=== PATIENT | male | born 1950 | race Caucasian/White ===

== ENCOUNTER 2017-04-11 05:20 | Inpatient (IN) | payer OTHER, MEDICAID ==
[~2017-04-11] VITALS: Ht 185.4 cm; Wt 82.1 kg
[2017-04-11] VITALS (20 sets, daily range): BP systolic 75–143; BP diastolic 36–97
--- NOTE | 2017-04-11 05:22 | NUR ---
[facility] FOR C/O COUGH W/ CONGESTION X SEVERAL WKS, PROGRESSIVELY GETTING WORSE TODAY W/ SOB, O2 SAT 90% ON RA. AOX4, AFEBRILE W/ RESP EVEN, LABORED, TACHYPNEIC, WHEEZING W/ RONCHI, PLACED ON 4 L/MIN O2 VIA NC, PULSE-OX W/ CARDIAC MONITORING.
[2017-04-11] MEDS ORDERED: ALBUTEROL FS 2.5 MG/0.5 ML VIAL.NEB NEB ONE (05:30)
--- NOTE | 2017-04-11 05:40 | NUR ---
WOUND SPECIALIST AT BEDSIDE FOR BREATHING TX.
[2017-04-11] MEDS ORDERED: ALBUTEROL FS 2.5 MG/0.5 ML VIAL.NEB ONE (05:44)
--- NOTE | 2017-04-11 05:46 | NUR ---
WILFREDO STARTED, LABS DRAWN W/ BC X2 & SENT.
[2017-04-11 06:03] LABS: BASOPHILS % (AUTO) 0.4 % (0.0-2.0); EOSINOPHILS % (AUTO) 0.1 % (0.0-6.0); HEMATOCRIT 42 % (39-51); HEMOGLOBIN 14.6 g/dL (13.5-17.5); LYMPHOCYTES # (AUTO) 1.2 /CMM (0.8-4.8); LYMPHOCYTES % (AUTO) 22.4 % (20.0-44.0); MEAN CORPUSCULAR HEMOGLOBIN 31 PG (26.0-33.0); MEAN CORPUSCULAR HGB CONC 34 g/dl (31.0-36.0); MEAN CORPUSCULAR VOLUME 89 fL (80-96); MONOCYTES # (AUTO) 0.7 /CMM (0.1-1.30); MONOCYTES % (AUTO) 13.8 % (2.0-12.0); NEUTROPHILS # (AUTO) 3.3 /CMM (1.8-8.9); NEUTROPHILS % (AUTO) 63.3 % (43.0-81.0); PLATELET COUNT (AUTO) 200 /CMM (150-450); RDW COEFFICIENT OF VARIATION 13.2 (11.5-15.0); RED BLOOD CELL COUNT(AUTO) 4.75 MIL/uL (4.5-6.0); WHITE BLOOD COUNT (AUTO) 5.3 K/uL (4.3-11.0)
[2017-04-11 06:07] LABS: CALCIUM, SERUM 8.8 mg/dL (8.5-10.1); POTASSIUM 3.4 mmol/L (3.5-5.1)
[2017-04-11 06:19] LABS: TROPONIN I 0.08 ng/mL (0.00-0.056)
--- NOTE | 2017-04-11 06:31 | NUR ---
CALLED SENIOR CASE MANAGER FOR TELE BED
--- NOTE | 2017-04-11 06:36 | NUR ---
[facility] paged.
[2017-04-11] MEDS ORDERED: OSELTAMIVIR PHOSPHATE 75 MG CAPSULE ONE (06:51)
[2017-04-11] MEDS ORDERED: ASPIRIN 325 MG TABLET ONE (06:51)
[2017-04-11] MEDS ORDERED: LEVOTHYROXINE 125 MCG TABLET PO (06:56)
[2017-04-11] MEDS ORDERED: ATORVASTATIN 40 MG TABLET PO (06:56)
[2017-04-11] MEDS ORDERED: LISI-607 PO (06:57)
[2017-04-11] MEDS ORDERED: ASPIRIN 325 MG TABLET PO ONE (07:00)
[2017-04-11] MEDS ORDERED: OSELTAMIVIR PHOSPHATE 75 MG CAPSULE PO ONE (07:00)
--- NOTE | 2017-04-11 07:00 | NUR ---
RECEIVED ORDERS FROM KYLE. AWAITING TELE BED
--- NOTE | 2017-04-11 07:12 | NUR ---
CALLED INJECTION SPECIALIST FOR TELE BED AGAIN. NO AVAILABLE BED YET
--- NOTE | 2017-04-11 10:09 | NUR ---
Pt sleeping in bed, no distress noted.
--- NOTE | 2017-04-11 10:49 | NUR ---
DR MONTANA CAME IN TO SEE PATIENT AND GAVE VERBAL ORDER TO PUT PATIENT ON BIPAP, DR YANEZ EVALUATED THE PATIENT AND AGREED. DR WRIGHT CALLED OF CHANGE IN STATUS.
[2017-04-11] MEDS ORDERED: ALBUTEROL FS 2.5 MG/3 ML VIAL.NEB ONE ×2 (10:58→11:14)
[2017-04-11] MEDS ORDERED: IPRATROPIUM NEB FS 0.5 MG/2.5 ML AMPUL.NEB NEB ONE (11:00)
[2017-04-11] MEDS ORDERED: ALBUTEROL FS 2.5 MG/3 ML VIAL.NEB NEB ONE (11:00)
--- NOTE | 2017-04-11 11:07 | NUR ---
Pt started having harder time breathing, sat pt in high fowlers, Bi-level vent placed. Pt felt some relief quickly. Addendum: 04/11/17 at 1112 by LADARIUS IPAP=15, EPAP=5, rate=18, fiO2=40%
--- NOTE | 2017-04-11 11:12 | NUR ---
PLACED PT ON BIPAP 15/5 RR 18 FIO2 40% AND CONFIRMED WITH ER DOCTOR.
[2017-04-11] MEDS ORDERED: IPRATROPIUM NEB FS 0.5 MG/2.5 ML AMPUL.NEB ONE ×2 (11:14→12:09)
--- NOTE | 2017-04-11 11:20 | NUR ---
Dr Post gave verbal order for ABG.
[2017-04-11 11:38] LABS: ABG BASE EXCESS 2.4 mmol/L; ABG PCO2 41.8 mmHg (35.0-45.0); ABG PH 7.428 (7.350-7.450); ABG PO2 152.5 mmHg (75.0-100.0); COHb 0.8 % (0.5-1.5); MetHb 0.5 % (0.0-1.5); SITE, ABG Left Radial; VENT MODE, BG BIPAP 15/5 R18
[2017-04-11] MEDS ORDERED: LEVOFLOXACIN 500 MG /D5W 100ML 500 MG/100 ML PIGGYBACK IV SCH (12:00)
[2017-04-11] MEDS ORDERED: LEVALBUTEROL HCL NEB 1.25 MG/0.5 ML VIAL.NEB NEB SCH (12:00)
--- NOTE | 2017-04-11 12:30 | NUR ---
RAIL SIGNAL WORKER RECEIVED PT BY JASON WITH MONITOR. REPORT RECEIVED FROM ASSEMBLY LINE MACHINE OPERATOR. PT C/O DYSPNEA WITH COUGH X 1 MONTH. ADMITTED INTO ICU FOR COPD EXACERBATION, NSTEMI, INFLUENZA A.
[2017-04-11] MEDS: IV 1/2NS 1000 ML 1,000 ML IV PRN (12:48)
--- NOTE | 2017-04-11 12:49 | NUR ---
PATIENT TRASNPOPRTED TO ICU. VSS. ISOLATION PREC. OBSERVED
[2017-04-11] MEDS ORDERED: ACETAMINOPHEN 325 MG TABLET PO PRN (13:00)
[2017-04-11] MEDS: methylPREDNISolone SOD SUCC 40 MG/ML VIAL IV SCH ×2 (13:05→17:18)
[2017-04-11] MEDS: ATORVASTATIN 40 MG TABLET PO SCH (13:06)
[2017-04-11] MEDS: LISINOPRIL (5MG) 5 MG TABLET PO SCH (13:06)
[2017-04-11] MEDS: LEVOTHYROXINE SODIUM 125 MCG TABLET PO SCH (13:06)
[2017-04-11] MEDS: ALBUTEROL HALF STRENGTH 1.25 MG/3 ML VIAL.NEB NEB SCH ×2 (13:13→19:48)
[2017-04-11] MEDS: IPRATROPIUM NEB FS 0.5 MG/2.5 ML AMPUL.NEB NEB SCH ×2 (13:13→19:48)
--- NOTE | 2017-04-11 14:15 | NUR ---
ICU/KINDERGARTNERS HELPER RESUME CARE FROM CHARGE NURSE REPORT RECEIVED. PT IS ALERT X4. PT IS A LITTLE LABORED IN BREATHING, SATURATION IS 94% ON CURRENT OXYGEN. PT SAID HE IS BREATHING BETTER THAN YESTERDAY. PT HAS BESIDE URINAL. ST 130'S ON MONITOR. PT ALSO HAS A SKIN RASH TO LOWER ABD WHICH WAS NOT TOLD TO PREVIOUS NURSE. THIS WAS DOCUMENTED AND PHOTO TAKEN.PT GIVEN LUNCH TRAY. PT DENIES PAIN CURRENTLY. CALL LIGHT WITHIN REACH.
[2017-04-11] MEDS: LEVOFLOXACIN 500 MG /D5W 100ML 500 MG in PREMIX 1 EA IV SCH (14:48)
--- NOTE | 2017-04-11 16:55 | NUR ---
ICU/SENIOR ELECTRONICS DESIGN ENGINEER OXYGEN WAS DECREASED TO 2 LITERS FROM 4 LITERS, PT HAS HISTORY OF COPD, AND DO NOT WANT TO HAVE CO2 INCREASE DUE TO THE HIGH OXYGEN LEVEL.
[2017-04-11] MEDS: OSELTAMIVIR PHOSPHATE 75 MG CAPSULE PO SCH (17:18)
--- NOTE | 2017-04-11 17:20 | NUR ---
ICU/ALL AROUND GEAR MACHINE OPERATOR PT WAS OFFERED TO HAVE A MID-LINE PLACED. PT CURRENTLY HAS ONLY ONE IV LINE. PT REFUSED. CALL LIGHT WITHIN REACH. PT CURRENTLY DENIES PAIN.
--- NOTE | 2017-04-11 19:05 | NUR ---
PRODUCT ARCHITECT OPENING NOTES RECEIVED REPORT FROM DANIEL SILVA. PATIENT A/A/O X4, ABLE TO MAKE NEEDS KNOWN. BREATHING EVEN & UNLABORED, TOLERATING O2 2L VIA NC. SATING @ 96%. DENIES SOB & PRODUCTIVE COUGH NOTED. ON TELE SINUS RHYTHM W/ PVS IN THE 90S. DENIES ANY CHEST PAIN OR DISCOMFORT. RIGHT FOREARM IV INTACT & PATENT W/ DRESSING CDI & IVF 1/2 NS @ 75 ML/HR. DENIES ANY PAIN OR DISCOMFORT @ THIS TIME. LATE DINNER TRAY SERVED. CALL LIGHT WITHIN REACH. WILL CONTINUE TO MONITOR.
--- NOTE | 2017-04-11 19:17 | NUR ---
ICU/EMERGENCY MEDICINE NURSE PRACTITIONER REPORT GIVEN TO ON COMING NIGHT NURSE.
[2017-04-11] MEDS ORDERED: NOREPINEPHRINE 8 MG in IV D5W 500 ML IV PRN (23:00)
[2017-04-12] VITALS (24 sets, daily range): BP systolic 81–140; BP diastolic 38–77
[2017-04-12] MEDS: methylPREDNISolone SOD SUCC 40 MG/ML VIAL IV SCH ×4 (00:32→17:07)
[2017-04-12] MEDS: ALBUTEROL HALF STRENGTH 1.25 MG/3 ML VIAL.NEB NEB SCH ×4 (01:29→19:42)
[2017-04-12] MEDS: IPRATROPIUM NEB FS 0.5 MG/2.5 ML AMPUL.NEB NEB SCH ×4 (01:29→19:42)
--- NOTE | 2017-04-12 07:30 | NUR ---
RN NOTES RECEIVED PT IN BED RESTING, A/A/O X3, ABLE TO MAKE NEEDS KNOWN. BREATHING EVEN & UNLABORED, TOLERATING O2 2L VIA NC. SATING @ 98%. DENIES PAIN NOR CHEST PAIN AT THIS TIME. SR WITH BBB ON COMMERCIAL FRONT LOAD OPERATOR HR 86. RIGHT FOREARM IV INTACT & PATENT W/ DRESSING CDI & IVF 1/2 NS @ 75 ML/HR. URINAL KEPT AT BEDSIDE, KEPT COMFORTABLE, CALL LIGHT WITHIN REACH. WILL CONTINUE TO MONITOR CLOSELY.
[2017-04-12] MEDS: ATORVASTATIN 40 MG TABLET PO SCH (08:59)
[2017-04-12] MEDS: LISINOPRIL (5MG) 5 MG TABLET PO SCH (09:00)
[2017-04-12] MEDS: LEVOTHYROXINE SODIUM 125 MCG TABLET PO SCH (09:11)
[2017-04-12] MEDS: OSELTAMIVIR PHOSPHATE 75 MG CAPSULE PO SCH ×2 (09:56→17:07)
[2017-04-12 10:26] LABS: HEMATOCRIT 38 % (39-51); HEMOGLOBIN 13.1 g/dL (13.5-17.5); LYMPHOCYTES # (AUTO) 0.7 /CMM (0.8-4.8); LYMPHOCYTES % (AUTO) 7.6 % (20.0-44.0); MEAN CORPUSCULAR HEMOGLOBIN 31 PG (26.0-33.0); MEAN CORPUSCULAR HGB CONC 35 g/dl (31.0-36.0); MEAN CORPUSCULAR VOLUME 89 fL (80-96); MONOCYTES # (AUTO) 0.6 /CMM (0.1-1.30); NEUTROPHILS # (AUTO) 8.1 /CMM (1.8-8.9); NEUTROPHILS % (AUTO) 86.4 % (43.0-81.0); PLATELET COUNT (AUTO) 180 /CMM (150-450); RDW COEFFICIENT OF VARIATION 13.4 (11.5-15.0); RED BLOOD CELL COUNT(AUTO) 4.25 MIL/uL (4.5-6.0); WHITE BLOOD COUNT (AUTO) 9.4 K/uL (4.3-11.0)
[2017-04-12 10:43] LABS: CALCIUM, SERUM 8.5 mg/dL (8.5-10.1); CREATININE 1.1 mg/dL (0.6-1.3); POTASSIUM 3.5 mmol/L (3.5-5.1)
[2017-04-12 13:03] LABS: IRON, SERUM 58 ug/dl (50-175); TOTAL IRON BINDING CAPACITY 217 ug/dl (250-450)
[2017-04-12] MEDS: LEVOFLOXACIN 500 MG /D5W 100ML 500 MG in PREMIX 1 EA IV SCH (13:41)
[2017-04-12] MEDS: ASPIRIN 81 MG TAB.CHEW PO SCH (13:41)
--- NOTE | 2017-04-12 14:58 | NUR ---
RN NOTES DR PANCHAL AT BEDSIDE, PT WAS SEEN AND EVALUATED, CONT BREATHING TX AND STEROIDS. PT VERBALIZED UNDERSTANDING. NO CHEST PAIN, NO SOB REPORTED
[2017-04-12] MEDS: IV 1/2NS 1000 ML 1,000 ML IV PRN (18:16)
--- NOTE | 2017-04-12 19:45 | NUR ---
ICU/JIGMAKER RECEIVED REPORT FROM DAY NURSE, PT IS ALERT AND ORT X4. PT IS CURRENTLY ON 2 LITERS N/C WITH NO ACUTE DISTRESS SEEN. PT APPEARS TO BE COMFORTABLE, AND WATCHING TV. PT USES BEDSIDE URINAL. CALL LIGHT WITHIN REACH, PT DENIES PAIN AT THIS TIME.
--- NOTE | 2017-04-12 23:30 | NUR ---
ICU/ALL SOURCE INTELLIGENCE ANALYST PT HAS A LOWER ABDOMINAL SCALY WOUND, PICTURE WAS TAKEN AND PLACED IN CHART PER [facility] POLICY. PT CURRENTLY DENIES ANY PAIN, NO ACUTE DISTRESS SEEN AT THIS TIME. CALL LIGHT WITHIN REACH.
[2017-04-13] VITALS (24 sets, daily range): BP systolic 97–152; BP diastolic 41–93
[2017-04-13] MEDS: methylPREDNISolone SOD SUCC 40 MG/ML VIAL IV SCH ×4 (00:03→17:06)
[2017-04-13] MEDS: ALBUTEROL HALF STRENGTH 1.25 MG/3 ML VIAL.NEB NEB SCH ×4 (01:21→20:00)
[2017-04-13] MEDS: IPRATROPIUM NEB FS 0.5 MG/2.5 ML AMPUL.NEB NEB SCH ×4 (01:21→20:00)
--- NOTE | 2017-04-13 03:00 | NUR ---
ICU/UTILITY WORKER PT REFUSED AM CARE, PT SAID "IT WAS ALREADY DONE." CALL LIGHT WITHIN REACH.
[2017-04-13 05:05] LABS: HEMATOCRIT 40 % (39-51); HEMOGLOBIN 13.4 g/dL (13.5-17.5); LYMPHOCYTES # (AUTO) 0.4 /CMM (0.8-4.8); LYMPHOCYTES % (AUTO) 4.9 % (20.0-44.0); MEAN CORPUSCULAR HEMOGLOBIN 31 PG (26.0-33.0); MEAN CORPUSCULAR HGB CONC 34 g/dl (31.0-36.0); MEAN CORPUSCULAR VOLUME 91 fL (80-96); MONOCYTES # (AUTO) 0.3 /CMM (0.1-1.30); MONOCYTES % (AUTO) 3.1 % (2.0-12.0); NEUTROPHILS # (AUTO) 7.7 /CMM (1.8-8.9); PLATELET COUNT (AUTO) 186 /CMM (150-450); RDW COEFFICIENT OF VARIATION 13.4 (11.5-15.0); RED BLOOD CELL COUNT(AUTO) 4.41 MIL/uL (4.5-6.0); WHITE BLOOD COUNT (AUTO) 8.3 K/uL (4.3-11.0)
--- NOTE | 2017-04-13 05:10 | NUR ---
ICU/BREEDING TECHNICIAN PT'S IV WAS BEEPING, WENT IN CHANGED THE IV LINE TO THE HAND. WILL MONITOR THE IV. CALL LIGHT WITHIN REACH, WITH PT DENIES PAIN.
[2017-04-13 05:23] LABS: CALCIUM, SERUM 8.9 mg/dL (8.5-10.1); CREATININE 1.2 mg/dL (0.6-1.3); MAGNESIUM 1.9 mg/dL (1.8-2.4); PHOSPHORUS 2.5 mg/dL (2.5-4.9)
[2017-04-13] MEDS: LEVOTHYROXINE SODIUM 125 MCG TABLET PO SCH (05:27)
[2017-04-13] MEDS: IV 1/2NS 1000 ML 1,000 ML IV PRN ×2 (05:27→17:14)
--- NOTE | 2017-04-13 07:15 | NUR ---
RN INITIAL NOTES RECEIVED PT ASLEEP, EASY TO AROUSE. ON 02 AT 2LPM VIA NC. NO RESPIRATORY DISTRESS NOTED. NO SOB NOTED. HOB ELEVATED. IV LINES IN PLACE. 1/2 NS AT 75ML/HR INFUSING. PT CONTINENT. BLE ELEVATED. CALL LIGHT WITHIN REACH. PT COMFORTABLE. WILL CONTINUE TO MONITOR.
[2017-04-13] MEDS: OSELTAMIVIR PHOSPHATE 75 MG CAPSULE PO SCH ×2 (08:16→17:06)
[2017-04-13] MEDS: ASPIRIN 81 MG TAB.CHEW PO SCH (08:16)
[2017-04-13] MEDS: LISINOPRIL (5MG) 5 MG TABLET PO SCH (08:17)
[2017-04-13] MEDS: ATORVASTATIN 40 MG TABLET PO SCH (08:17)
--- NOTE | 2017-04-13 11:00 | NUR ---
RN NOTES SEEN AND EXAMINED BY DR. VENTURA. AWARE OF CURRENT STATUS, LABS AND CXR RESULT. MO CLEARED PT TO BE DOWNGRADED. WILL MONITOR.
--- NOTE | 2017-04-13 13:10 | NUR ---
RN NOTES SEEN AND EXAMINED BY DR. MIKE REED. AWARE OF CURRENT LAB VALUES AND CXR RESULT. ORDERED LABS IN AM. WILL MONITOR
[2017-04-13] MEDS: LEVOFLOXACIN 500 MG /D5W 100ML 500 MG in PREMIX 1 EA IV SCH (14:21)
--- NOTE | 2017-04-13 15:25 | NUR ---
RN NOTES SEEN AND EXAMINED BY DR. JORDAN. PT OFF BIPAP SINCE LAST NIGHT. TOLERATING 02 AT 2LPM VIA NC. NO SOB NOTED. NO SIGNS OF PAIN NOTED. WILL CONTINUE TO MONITOR.
--- NOTE | 2017-04-13 18:40 | NUR ---
RN CLOSING NOTES NO SIGNIFICANT CHANGE NOTED. NO RESPIRATORY DISTRESS NOTED. HOB ELEVATED. DENIES ANY PAIN. IV LINES IN PLACE. IVF INFUSING. SKIN REMAINS INTACT. KEPT CLEAN AND DRY. ASSISTED IN REPOSITIONING. ALL NEEDS ATTENDED AND MET. KEPT COMFORTABLE. CALL LIGHT WITHIN REACH. WILL ENDORSE FOR CONTINUITY OF CARE.
--- NOTE | 2017-04-13 19:20 | NUR ---
RN NOTES RECEIVED PT AWAKE ALERT ORIENTED X 3 ABLE TO MAKE KNOWN NEEDS. DENIES PAIN. NOT USING BIPAP ANY MORE. NO ACUTE RESP DISTRESS BILATERAL BREATH SOUND CLEAR. SATING 96% ON O2 2LPM VIA NC TOLERATED WELL. TELE MONITOR REVEALS SR HR 65. DENIES ANY CHEST PAIN. IV SITE ON RAC INTACT AND PATENT RIGHT HAND G 20 ACCIDENTALLY PULLED OUT BY PATIENT WITH NS @ 75 CC/HR. CALL LIGHT INSTRUCTED TO USED WHEN NEED ASSISTANCE KEPT WITHIN EASY REACH. KEPT PT CLEAN AND DRY. WILL MONITOR CLOSELY.
--- NOTE | 2017-04-13 22:00 | NUR ---
RN NOTES PT WATCHING TV WITHOUT SOB OR DISTRESS TOLERATED O2 2LPM VIA NC SATING 96%. TELE MONITOR READS SR. ENCOURAGED TO CHANGE BED LINENS REFUSED.
[2017-04-14] VITALS (20 sets, daily range): BP systolic 96–141; BP diastolic 45–85
[2017-04-14] MEDS: IPRATROPIUM NEB FS 0.5 MG/2.5 ML AMPUL.NEB NEB SCH ×4 (01:30→19:59)
[2017-04-14] MEDS: ALBUTEROL HALF STRENGTH 1.25 MG/3 ML VIAL.NEB NEB SCH ×4 (01:30→19:59)
--- NOTE | 2017-04-14 01:30 | NUR ---
RN NOTES PT IS WATCHING TV NON COMPLIANT TO STRAIGHT THE RIGHT ANTECUBITAL IV LINE IV PUMP ALARMED. EDUCATE PT REGARDING THE ARM POSITION THAT'S MAKE THE IV BEEP. REFUSED TO HAVE ANOTHER LINE AT THIS TIME. AND PT WANTS TO SLEEP. WILL OFFERED WHEN PT WOKE UP. ENCOURAGED TO DRINK MORE INSTEAD WHILE IVF HELD. WILL CONTINUE TO MONITOR.
--- NOTE | 2017-04-14 02:30 | NUR ---
RN NOTES PT ASLEEP WELL AT THIS THIS TIME TELE MONITOR REVEALS SB LOWEST HR 45 PT ASLEEP AND NO CHANGE OF MENTAL STATUS SHOWS NO ACUTE RESP DISTRESS PRESENT. WILL ADA. MONITOR.
[2017-04-14 05:48] LABS: HEMATOCRIT 38 % (39-51); LYMPHOCYTES # (AUTO) 0.7 /CMM (0.8-4.8); LYMPHOCYTES % (AUTO) 5.6 % (20.0-44.0); MEAN CORPUSCULAR HEMOGLOBIN 31 PG (26.0-33.0); MEAN CORPUSCULAR HGB CONC 34 g/dl (31.0-36.0); MEAN CORPUSCULAR VOLUME 90 fL (80-96); MONOCYTES # (AUTO) 0.5 /CMM (0.1-1.30); MONOCYTES % (AUTO) 3.9 % (2.0-12.0); NEUTROPHILS # (AUTO) 11.2 /CMM (1.8-8.9); NEUTROPHILS % (AUTO) 90.5 % (43.0-81.0); PLATELET COUNT (AUTO) 190 /CMM (150-450); RDW COEFFICIENT OF VARIATION 13.4 (11.5-15.0); RED BLOOD CELL COUNT(AUTO) 4.22 MIL/uL (4.5-6.0); WHITE BLOOD COUNT (AUTO) 12.4 K/uL (4.3-11.0)
--- NOTE | 2017-04-14 06:30 | NUR ---
RN NOTES PT REMAINED IN STABLE CONDITION THROUGHOUT THE SHIFT. AFEBRILE. TOLERATED O2 2LPM VIA NC SATING 97% TELE MONITOR READS SB WITH BBB HR 52. PT REMAINS ALERT ORIENTED X 3. IVF STILL UNHOOKED DUE TO PT IS NON COMPLIANT STRAIGHTENING THE RAC IV LINE. CONTINUE TO ENCOURAGED TO DRINK MORE FLUIDS. ALL NEEDS ATTENDED. WILL ENDORSED CONTINUITY OF CARE TO AM NURSE.
--- NOTE | 2017-04-14 07:10 | NUR ---
RN INITIAL NOTES RECEIVED PT ASLEEP, EASY TO AROUSE. ON 02 AT 2LPM VIA NC. NO RESPIRATORY DISTRESS NOTED. NO SOB NOTED. HOB ELEVATED. IV LINES IN PLACE. 1/2 NS AT 75ML/HR INFUSING. PT CONTINENT. SKIN REMAINS INTACT. BLE ELEVATED. CALL LIGHT WITHIN REACH. PT COMFORTABLE. WILL CONTINUE TO MONITOR.
[2017-04-14] MEDS: LEVOTHYROXINE SODIUM 125 MCG TABLET PO SCH (08:27)
[2017-04-14] MEDS: methylPREDNISolone SOD SUCC 40 MG/ML VIAL IV SCH ×2 (08:27→16:53)
[2017-04-14] MEDS: ATORVASTATIN 40 MG TABLET PO SCH (08:27)
[2017-04-14] MEDS: LISINOPRIL (5MG) 5 MG TABLET PO SCH (08:27)
[2017-04-14] MEDS: ASPIRIN 81 MG TAB.CHEW PO SCH (08:27)
[2017-04-14] MEDS: OSELTAMIVIR PHOSPHATE 75 MG CAPSULE PO SCH ×2 (08:30→16:53)
[2017-04-14] MEDS: IV 1/2NS 1000 ML 1,000 ML IV PRN ×2 (09:51→23:26)
--- NOTE | 2017-04-14 10:30 | NUR ---
RN NOTES SEEN AND EXAMINED BY DR. JORDAN. PT ON 02 AT 2LPM VIA NC. NO RESPIRATORY DISTRESS NOTED. NO SOB NOTED. DENIES ANY PAIN. PER MD, PT STABLE TO BE DOWNGRADED.
[2017-04-14] MEDS: LEVOFLOXACIN 500 MG /D5W 100ML 500 MG in PREMIX 1 EA IV SCH (14:01)
--- NOTE | 2017-04-14 15:30 | NUR ---
RN NOTES PT TRANSFERRED TO ROOM 321. PT REMAINS A/0X4. ON 02 AT 2LPM VIA NC. NO RESPIRATORY DISTRESS NOTED. NO SOB NOTED. DENIES ANY PAIN. MIDLINE IN PLACE. IVF INFUSING. PT COMFORTABLE. CALL LIGHT WITHIN REACH. ENDORSED TO DOMENIC SILVA AT BEDSIDE.
--- NOTE | 2017-04-14 16:00 | NUR ---
MS RN NOTES RECEIVED PATIENT FROM ICU REPORT GIVEN BY Drake NIELSEN X 4. ON 02 AT 2LPM VIA NM. NO SOB NOTED. NO ACUTE DISTRESS NOTED. DENIES ANY PAIN. MIDLINE IN PLACE, INFUSING IVF. NO REDNESS OR SWELLING. ORIENTED TO THE ROOM. SAFETY MEASURES IN PLACE. CALL LIGHT PLACE WITHIN REACH. WILL CONTINUE TO MONITOR ACCORDINGLY.
--- NOTE | 2017-04-14 18:00 | NUR ---
MS RN CLOSING NOTES PATIENT COMFORTABLY IN BED WATCHING TV, A/0 X 4. ON 02 AT 2LPM VIA NC. NO SOB NOTED. NO ACUTE DISTRESS NOTED. DENIES ANY PAIN. MIDLINE IN PLACE, INFUSING IVF. NO REDNESS OR SWELLING. DUE MEDICATION GIVEN, NO ASE NOTED. NEEDS ATTENDED. SAFETY MEASURES IN PLACE. CALL LIGHT PLACE WITHIN REACH. WILL CONTINUE TO MONITOR ACCORDINGLY. WILL ENDORSE TO INCOMING SHIFT FOR CONTINUITY OF CARE.
[2017-04-15] MEDS: ALBUTEROL HALF STRENGTH 1.25 MG/3 ML VIAL.NEB NEB SCH ×4 (01:30→20:02)
[2017-04-15] MEDS: IPRATROPIUM NEB FS 0.5 MG/2.5 ML AMPUL.NEB NEB SCH ×4 (01:30→20:02)
[2017-04-15 06:30] LABS: BASOPHILS % (AUTO) 0.1 % (0.0-2.0); HEMATOCRIT 38 % (39-51); HEMOGLOBIN 12.8 g/dL (13.5-17.5); LYMPHOCYTES # (AUTO) 0.9 /CMM (0.8-4.8); LYMPHOCYTES % (AUTO) 6.9 % (20.0-44.0); MEAN CORPUSCULAR HEMOGLOBIN 31 PG (26.0-33.0); MEAN CORPUSCULAR HGB CONC 34 g/dl (31.0-36.0); MEAN CORPUSCULAR VOLUME 91 fL (80-96); MONOCYTES # (AUTO) 0.7 /CMM (0.1-1.30); MONOCYTES % (AUTO) 5.3 % (2.0-12.0); NEUTROPHILS # (AUTO) 11.4 /CMM (1.8-8.9); NEUTROPHILS % (AUTO) 87.7 % (43.0-81.0); PLATELET COUNT (AUTO) 209 /CMM (150-450); RDW COEFFICIENT OF VARIATION 13.3 (11.5-15.0); RED BLOOD CELL COUNT(AUTO) 4.15 MIL/uL (4.5-6.0)
[2017-04-15 07:08] LABS: CALCIUM, SERUM 8.8 mg/dL (8.5-10.1); CREATININE 0.9 mg/dL (0.6-1.3); MAGNESIUM 2.2 mg/dL (1.8-2.4); PHOSPHORUS 3.5 mg/dL (2.5-4.9)
--- NOTE | 2017-04-15 07:25 | NUR ---
REMEDIAL PROJECT MANAGER/CLOSING NOTES PT MUCH FEEL BETTER AFTER BREATHING TREATMENT DONE . 98% WITH 02 AT 2 LITERS. STABLE CURTIS THE NIGHT AND SLEPT WELL . ALL DUE MEDS GIVEN AND ALL NEEDS MET. KEPT HIM WARM AND COMFORTABLE AT ALL TIMES. STILL ON ISOLATION PRECAUTION FOR INFLUENZA. ENDORSE TO AM NURSE ASH FOR CONTINUITY OF CARE. PLACE CALL LIGHT AT REACH.
--- NOTE | 2017-04-15 07:29 | NUR ---
MS RN OPENING NOTES. RECEIVED PT AWAKE IN BED IN NO ACUTE SIGNS OF DISTRESS. HOB ELEVATED. A/O X4, VERBALLY RESPONSIVE, DENIES ANY PAIN OR DISCOMFORTS AT THIS TIME. ON O2 VIA N/C @ 2LPM, TOLERATING WELL WITH NO SOB NOTED. JEFFRY MIDLINE INTACT AND PATENT WITH IVF OF 1/2 NS @ 75ML/HR INFUSING. BED IN LOWEST AND LOCKED POSITION WITH SIDE-RAILS UP X2. CALL AMANDA WITHIN REACH. WILL CONTINUE TO MONITOR ACCORDINGLY.
[2017-04-15 08:01] VITALS: BP 101/60
[2017-04-15] MEDS: LEVOTHYROXINE SODIUM 125 MCG TABLET PO SCH (08:12)
[2017-04-15] MEDS: OSELTAMIVIR PHOSPHATE 75 MG CAPSULE PO SCH ×2 (08:12→16:26)
[2017-04-15] MEDS: methylPREDNISolone SOD SUCC 40 MG/ML VIAL IV SCH (08:12)
[2017-04-15] MEDS: ATORVASTATIN 40 MG TABLET PO SCH (08:12)
[2017-04-15] MEDS: ASPIRIN 81 MG TAB.CHEW PO SCH (08:12)
[2017-04-15] MEDS: LISINOPRIL (5MG) 5 MG TABLET PO SCH (08:13)
[2017-04-15] MEDS: CARVEDILOL 3.125 MG TABLET PO SCH ×2 (09:00→21:00)
--- NOTE | 2017-04-15 09:13 | NUR ---
RN NOTES PT REFUSED BP MEDS THIS MORNING, BP IS LOW 101/60 MMHG AND LOW HR 54. WILL CONTINUE TO MONITOR
[2017-04-15] MEDS: LEVOFLOXACIN 500 MG /D5W 100ML 500 MG in PREMIX 1 EA IV SCH (14:07)
[2017-04-15 16:00] VITALS: BP_SYST 100; BP_SYST 98; BP_DIAS 50; BP_DIAS 54; BP_DIAS 60
--- NOTE | 2017-04-15 19:03 | NUR ---
MS RN CLOSING NOTES. PT RESTING IN BED AT MODERATE HIGH BACKREST. A/O X4, VERBALLY RESPONSIVE. DROPLET PRECAUTIONS FOR INFLUENZA MAINTAINED. NO SIGNIFICANT CHANGES NOTED THROUGHOUT THE DAY. ON O2 VIA N/C @ 2LPM, TOLERATING WELL WITH NO SOB NOTED. JEFFRY MIDLINE INTACT AND PATENT. BED IN LOWEST AND LOCKED POSITION WITH SIDE-RAILS UP X2. CALL AMANDA WITHIN REACH. ALL NEEDS AND CARE ATTENDED WELL. WILL ENDORSE TO GLOBAL MOBILITY SPECIALIST NURSE FOR DARWIN.
--- NOTE | 2017-04-15 19:30 | NUR ---
MS FABIO INITIAL NOTES PT RECEIVED PT IN BED AWAKE AND ALERT RECEIVING TREATMENT AT THIS TIME, NOT IN ANY ACUTE DISTRESS NOTED. KEPT HIM WARM AND COMFORTABLE AT ALL TIMES. ENCOURAGE HIM TO USED THE CALL LIGHT SYSTEM IF HE NEEDS SOME ASSISTANCE OR HELPED. ON ISOLATION PRECAUTION, (INFLUENZA B ) IMPLEMENTED AND OBSERVED. PLACE CALL LIGHT AT REACH.
[2017-04-15 20:00] VITALS: BP 112/54
[2017-04-16] MEDS: IPRATROPIUM NEB FS 0.5 MG/2.5 ML AMPUL.NEB NEB SCH ×4 (01:57→20:02)
[2017-04-16] MEDS: ALBUTEROL HALF STRENGTH 1.25 MG/3 ML VIAL.NEB NEB SCH ×4 (01:57→20:02)
--- NOTE | 2017-04-16 07:23 | NUR ---
MS RN OPENING NOTES. RECEIVED PT ASLEEP IN BED, EASILY AROUSABLE. A/O X4, SAME VERBALLY RESPONSIVE, DENIES ANY PAIN OR DISCOMFORTS AT THIS TIME. ON O2 VIA N/C @ 2LPM, TOLERATING WELL WITH NO SOB NOTED. JEFFRY MIDLINE INTACT AND PATENT, FLUSHES WELL. HOB ELEVATED. BED IN LOWEST AND LOCKED POSITION WITH SIDE-RAILS UP X2. CALL AMANDA WITHIN REACH. WILL CONTINUE TO MONITOR ACCORDINGLY.
--- NOTE | 2017-04-16 07:30 | NUR ---
MS COVERAGE ANALYST CLOSING NOTES PT REMAINS RESTING WITHOUT ANY ACUTE DISTRESS NOTED. BREATHING EVEN AND NON -LABORED. SLEPT WELL AND STABLE CURTIS THE NIGHT. KEPT HIM WARM AND COMFORTABLE AT ALL TIMES. WILL CONTINUE TO MONITOR. ENDORSE TO AM NURSE FOR CONTINUITY OF CARE.
[2017-04-16 08:00] VITALS: BP 141/66
[2017-04-16] MEDS: LEVOTHYROXINE SODIUM 125 MCG TABLET PO SCH (08:25)
[2017-04-16] MEDS: ASPIRIN 81 MG TAB.CHEW PO SCH (08:26)
[2017-04-16] MEDS: ATORVASTATIN 40 MG TABLET PO SCH (08:26)
[2017-04-16] MEDS: CARVEDILOL 3.125 MG TABLET PO SCH (08:28)
[2017-04-16] MEDS: LISINOPRIL (5MG) 5 MG TABLET PO SCH (08:29)
[2017-04-16] MEDS: OSELTAMIVIR PHOSPHATE 75 MG CAPSULE PO SCH ×2 (08:31→17:34)
[2017-04-16] MEDS ORDERED: methylPREDNISolone SOD SUCC 40 MG/ML VIAL IV SCH (09:00)
[2017-04-16] MEDS: LEVOFLOXACIN 500 MG /D5W 100ML 500 MG in PREMIX 1 EA IV SCH (14:29)
[2017-04-16] MEDS ORDERED: ASPI-1169 PO (15:52)
[2017-04-16] MEDS ORDERED: CARV3.122 PO (15:52)
[2017-04-16] MEDS ORDERED: PRED20TA PO (15:52)
[2017-04-16] MEDS ORDERED: ALBU18HF2 INH (15:52)
[2017-04-16 16:00] VITALS: BP 123/70
--- NOTE | 2017-04-16 18:57 | NUR ---
MS RN CLOSING NOTES. PT AWAKE AND RESTING IN BED AT MODERATE HIGH BACKREST. A/O X4, VERBALLY RESPONSIVE. NO SIGNIFICANT CHANGES NOTED THROUGHOUT THE DAY. ON O2 VIA N/C @ 2LPM, TOLERATING WELL WITH NO SOB NOTED. JEFFRY MIDLINE INTACT AND PATENT. BED IN LOWEST AND LOCKED POSITION WITH SIDE-RAILS UP X2. CALL AMANDA WITHIN REACH. ALL NEEDS AND CARE ATTENDED WELL. PT FOR DISCHARGE HOME TONIGHT. WILL ENDORSED PROGRAM MANAGEMENT INTERN NURSE TO D/C PT.
--- NOTE | 2017-04-16 19:30 | NUR ---
RN OPENING NOTES PATIENT IS IN BED, ALERT AND ORIENTED X4. VS STABLE. NO C/O PAIN AT THIS TIME. NO SOB NOTED. RESPIRATIONS EVEN AND UNLABORED. IV ACCESS ON L FA SL INTACT AND PATENT, FLUSHES WELL WITH NS, NO REDNESS OR INFILTRATION NOTED. PATIENT IS WAITING TO BE DISCHARGED. ALL DISCHARGED PAPERS SIGNED AND INSTRUCTIONS PROVIDED. BED IN LOW AND LOCKED POSITION, SIDE RAILS X2. CALL LIGHT WITHIN EASY REACH. WILL CONTINUE TO MONITOR.
--- NOTE | 2017-04-16 21:00 | NUR ---
RN NOTES PATIENT DISCHARGED HOME IN STABLE CONDITION. VS STABLE. NO C/O PAIN AT THIS TIME. NO SOB NOTED RESPIRATIONS EVEN AND UNLABORED. ALL DISCHARGE PAPERS SIGNED AND TEACHING PROVIDED. CALL AND ORDER TAXI FOR PATIENT.
== END 2017-04-16 21:00 | disposition home or self-care (01) | DRG 280 ==
LOC: ER 05:21 → ICU 12:06 → MED 04-14 15:20
PROVIDERS: ADMIT Internal Medicine; ATTEND Internal Medicine
PROC: 05H533Z Insertion of Infusion Device into Right Subclavian Vein, Percutaneous Approach (ICD-10-PCS; principal; 2017-04-14)
DX: I21.A1 Myocardial infarction type 2 (principal); J96.01 Acute respiratory failure with hypoxia; J96.02 Acute respiratory failure with hypercapnia; J44.1 Chronic obstructive pulmonary disease with (acute) exacerbation; E78.5 Hyperlipidemia, unspecified; I10 Essential (primary) hypertension; F10.10 Alcohol abuse, uncomplicated; J10.1 Influenza due to other identified influenza virus with other respiratory manifestations; I25.10 Atherosclerotic heart disease of native coronary artery without angina pectoris; I25.5 Ischemic cardiomyopathy; Z95.1 Presence of aortocoronary bypass graft; D63.8 Anemia in other chronic diseases classified elsewhere; I25.2 Old myocardial infarction; F17.210 Nicotine dependence, cigarettes, uncomplicated
CPT/HCPCS: 36415; 36600; 71045-TC; 80048-TC; 83540-TC; 83605-TC; 83735-TC; 83880; 84100-TC; 84484-TC; 85025-TC; 87040-TC; 87081-TC; 87400; 93307-TC; 94762-TC; 94799-TC; A4216; A4606; J1956; J2920; J3490; J7030; J7060; Z7610